=== PATIENT | female | born 1965 | race Caucasian/White ===

== ENCOUNTER 2023-04-05 07:30 | Outpatient (RCR) | payer OTHER, SELFPAY ==
--- NOTE | 2022-12-21 08:10 | PT.OPDNX ---
[facility] Daily Note [facility] Daily Note Start: 09/27/22 07:04 Freq: Status: Active Protocol: Document 12/21/22 07:25 ALICIA (Rec: 12/21/22 08:10 ALICIA [id number]) E-signed By Janice Daniel, PT PT OP Daily Progress Note Visit Information Note Type Daily Note Visit Number 7 Insurance Information Insurance Name [facility] Medical Diagnosis CX and UBP, Elbow pain Without radiation Treating Diagnosis N/T and reduced coordination into Lt UE Pain at UB and Neck Hypertension of CX Soft tissue and UB Referring MD Dr Janice Barron Subjective Subjective I had been doing really good, but for some odd reason I have had severe Rt hip pain after using CX traction the last 3 times. I do have pillows under my knees, do traction on the floor but with 2 yoga matts and extra blankets to stay warm. Then, I slipped on cardboard with my Lt leg. Did not fall but straightened my Lt arm out all the way. I woke up the next day and could not even move my head/neck, and had severe 9/10 pain down my Lt arm, and almost went to ER. It has gradually improved back to previous normal. I really want to have my elbow looked at closer. Have been cont with traction at 22-24#, but not as relaxed now on it, due to hip pain. Pain Comments 0-3/10 (was 6/10) spot at Lt upper neck that is always more painful. Have tried ice/heat and use theracane daily. Elbow pain remains 2-8/10 Precautions Treatment Precautions/Contraindications Arthritis Home Exercise Home Exercise Comments Advised to try to place towel roll under back with traction use, perform hip wiggles, pelvic rocking, KTC, LT rotation, as long as she keeps her shoulders/head/neck still while using traction Objective Patient Instructed in Risks/Benefits Yes Therapeutic Exercise Therapeutic Exercise: To Restore Re-educated / review current Functional Status HEP: -CX retraction and chin nod -UT self stretch -levator self stretch -AROM end stretch rot -rowing with GTB -ER with OTB/GTB -[place] Pull back -PNF anchor low to high D2 Manual Therapy Techniques Manual Therapy Minutes (minutes) 25 Manual Therapy Techniques STM to UB/Cervical with TPR and mm bending/stripping, gentle grade 2 up/down and side glides. Sub-occipital release. More tender at superior scapular border/UT mm belly. Mechanical Traction Mechanical Traction Comments She now has her own Home CX Traction, s/p 1 week. Treatment Minutes Timed Code Treatment Minutes 25 Total Treatment Time 25 Billing Units Manual Therapy Units 2 Assessment/Impression Assessment/Impression We have used ice and TASTM/MFR to forearm and elbows. Symptoms are less with use of home traction, but not absent. Client was less sensitive palpably at mid to upper CX, improved range with Up/down glides. She stated she felt less discomfort with mm stripping and manual UT stretch, TPR at Lt med scap border. She appears to be complaint with home traction, up to 22# X 11 min. However, as noted above, recent increase again in Lt elbow/ forearm pain. Referred back to physician. Possibly pursue OT for hand therapy, X-Ray or MRI for elbow. Plan of Care Physical Therapy Goals In 4-6 visits, Sharmila will be able to: 1. Demonstrat increase ease of CX kendal ROT to symmetric 80% of normal without discomfort at neck or UE 2. IND in entire HEP with emphasis on pace, reps and alignment, HOLD times 3. Report at least 30% improved sleeping tolerance in sidelying position, mili Lt preferred side. In 10-12 visits, Cindy will be able to: 1. Reduced UE N/T and dis- coordination, dropping items, by reported 50% in Lt EU 2. Reduced fear of dropping items/reduced self bracing with Rt UE when lifting with Lt UE by at least 50% 3. Return to PLOF and symmetric use of kendal UE with lifting up to 30# with home chores and hobbies, dog cares (Yasmin Marinopard) Daily Plan of Care Continue per POC Daily Plan of Care Comments Progress with CX Traction, pursue approval of home unit
== END 2023-05-11 11:59 | disposition home or self-care (01) ==
PROVIDERS: PCP Family Medicine; Visit Provider Family Medicine
DX: M54.2 Cervicalgia (principal); M54.9 Dorsalgia, unspecified; M77.10 Lateral epicondylitis, unspecified elbow; Z51.89 Encounter for other specified aftercare
CPT/HCPCS: 97012; 97033; 97035; 97110; 97140; 97162; 97165; 97535